=== PATIENT | female | born 1965 | race American Indian/Alaskan Native ===

== ENCOUNTER 2020-04-10 11:06 | Outpatient (CLI) | payer BC ==
--- NOTE | 2020-04-10 13:44 | Magnetic Resonance Report ---
Bilateral breast MR without and with contrast. History: Screening breast MRI, patient at high risk for breast malignancy based upon family history. Right upper chest wall tenderness. Comparison: 02/05/2020. Technique: Multiplanar multisequence MR images of the breast were obtained before and after the intra venous administration of intravenous contrast. Post processing analysis and review was performed on a separate computer workstation. Findings: Breast composition is heterogenously dense. There is mild background parenchymal enhancement within both breasts. RIGHT BREAST: No enhancing mass, dominant focus, or other abnormal enhancement is identified within t he right breast. LEFT BREAST: Located within the left lower outer breast at middle to posterior depth is a circumscrib ed 5 x 4 x 3 mm oval, possibly reniform, shaped enhancing lesion. This demonstrates T2 hyperintense s ignal and is favored to represent an intramammary lymph node. There is questionable faint nonenhancin g eccentric component which may represent a fatty hilum. Otherwise, no abnormal enhancement is identi fied within the left breast. No enlarged axillary or internal mammary lymph nodes. The thyroid is enlarged and there is a suspected 2.3 x 1.9 cm nodule in the left lobe of the thyroid. Impression: There is a 5 mm oval, possibly reniform, shaped enhancing lesion in the left lower outer breast at mi ddle to posterior depth. This is suspected to represent intramammary lymph node. A targeted left adam st ultrasound is recommended for confirmation. Ultrasound should be focused from the 4:00 to 5:00 pos ition, 8 cm from the nipple. If no sonographic correlate is identified, a six-month follow-up MRI is recommended. The thyroid is enlarged and there is a suspected 2.3 cm left thyroid lobe nodule. A dedicated thyroid ultrasound is recommended for further evaluation. BIRADS 0: Incomplete--Needs Additional Imaging Evaluation. A normal MRI does not exclude the presence of some forms of breast malignancy as literature reports s uggest that some forms of ductal carcinoma in situ or lobular carcinoma, particularly, may not be det ected on MRI. The sensitivity and specificity of MRI for cancers under 5 mm may be reduced. MRI does not replace the recommendation for annual conventional mammographic evaluation and should be used as an adjunct to mammography and physical examination as necessary. Signer Name: Jose Acosta MD Signed: 04/10/2020 1:40 PM Workstation Name: [id number]
== END 2020-04-10 11:07 | disposition home or self-care (01) ==
LOC: SPVIMAG 11:06
PROVIDERS: ATTEND Surgery
DX: E01.0 Iodine-deficiency related diffuse (endemic) goiter (principal); N64.4 Mastodynia; N60.11 Diffuse cystic mastopathy of right breast; N60.12 Diffuse cystic mastopathy of left breast
CPT/HCPCS: A9577; C8908; 77049

== ENCOUNTER 2020-04-23 12:48 | Outpatient (CLI) | payer BC ==
--- NOTE | 2020-04-23 14:33 | Ultrasound Report ---
ULTRASOUND BREAST LEFT LIMITED, 04/23/2020 CLINICAL INFORMATION / INDICATION: MASTODYNIA. Left breast nodule on MRI. TECHNIQUE: Targeted ultrasound evaluation was performed of the area of interest. COMPARISON: Bilateral breast MRI 04/10/20. FINDINGS: There is a 6 mm benign-appearing lymph node at the 4:00 position 8 cm from the nipple which correspon ds to the MRI finding. An incidental benign-appearing 3.7 mm solid nodule is present at the 5:00 posi tion 5 cm from the nipple. No suspicious abnormality is seen. IMPRESSION: No sonographic evidence of malignancy. Follow up recommendation: Routine yearly BI-RADS Category 2: Benign. A normal or "negative" report should not preclude biopsy or follow-up of a clinically suspicious find ing. Signer Name: Montana Luo MD Signed: 04/23/2020 2:28 PM Workstation Name: [id number]
--- NOTE | 2020-04-23 16:11 | Ultrasound Report ---
ULTRASOUND THYROID INDICATION / CLINICAL INFORMATION: THYROID DISORDER. COMPARISON: None available. FINDINGS: RIGHT LOBE: Size = 4.8 x 2.4 x 2.7 cm. Normal echogenicity. No hyperemia LEFT LOBE: Size = 5.5 x 2.6 x 2.9 cm. Normal echogenicity. No hyperemia ISTHMUS: 1.1 cm. NODULES: Nodules are present as described below. Please note that nodules less than 5 mm are not desc ribed per TIRADS criteria and a maximum of 4 nodules will be described. NODULE # 1 -- Location: right lower -- Size: 2.4 x 1.4 x 1.7 cm. -- Composition: Solid = 2 points -- Echogenicity: Hypoechoic = 2 points -- Shape: [id number]-dktj-mrvi = 0 points -- Margin: Smooth = 0 points -- Echogenic Foci: None = 0 points -- ACR TI-RADS Score = 4. NODULE # 2 -- Location: isthmus -- Size: 1.3 x 1.0 x 1.1 cm. -- Composition: Solid = 2 points -- Echogenicity: Hypoechoic = 2 points -- Shape: Psyrz-[id number]-[id number] = 0 points -- Margin: Smooth = 0 points -- Echogenic Foci: None = 0 points -- ACR TI-RADS Score = 4. NODULE # 3 -- Location: left mid -- Size: 0.6 x 0.5 x 0.5 cm. -- Composition: Solid = 2 points -- Echogenicity: Hypoechoic = 2 points -- Shape: Amipg-ajkn-ympi = 0 points -- Margin: Smooth = 0 points -- Echogenic Foci: None = 0 points -- ACR TI-RADS Score = 4. NODULE # 4 -- Location: left mid -- Size: 0.6 x 0.5 x 0.8 cm. -- Composition: Solid = 2 points -- Echogenicity: Hyperechoic or Isoechoic = 1 point -- Shape: Ucgct-vgfm-nage = 0 points -- Margin: Smooth = 0 points -- Echogenic Foci: None = 0 points -- ACR TI-RADS Score = 3. LYMPH NODES: No abnormal lymph nodes. PARATHYROID GLANDS: No abnormal parathyroid gland identified. ADDITIONAL FINDINGS: None. IMPRESSION: Bilateral thyroid nodules as above. A follow-up thyroid ultrasound in one year is recommended. NOTE: Nodule size based on mean (average) size of 3 dimensions. NOTE: Nodules < 1 cm do not typically require follow-up or FNA unless there are suspicious features ( NIDHI, 2015) ACR TI-RADS Thyroid Nodule Recommendations TI-RADS 1 (0 points) ----- BENIGN. No Fine Needle Aspirate biopsy (FNA) or follow-up. TI-RADS 2 (1-2 points) -- NOT SUSPICIOUS. No FNA or follow-up. TI-RADS 3 (3 points) ----- MILDLY SUSPICIOUS. Follow up in 1 year if >= 1.5 cm. FNA if >= 2.5 cm. TI-RADS 4 (4-6 points) -- MODERATELY SUSPICIOUS. Follow up in 1 year if >= 1.0 cm. FNA if >= 1.5 cm. TI-RADS 5 (7+ points) --- HIGHLY SUSPICIOUS. Follow up in 1 year if >= 0.5 cm. FNA if >= 1.0 cm. Signer Name: Wili Pereira MD Signed: 04/23/2020 4:06 PM Workstation Name: [id number]
== END 2020-04-23 12:49 | disposition home or self-care (01) ==
LOC: SPVWC 12:48
PROVIDERS: ATTEND Surgery
DX: E04.2 Nontoxic multinodular goiter (principal); N64.4 Mastodynia
CPT/HCPCS: 76536